=== PATIENT | male | born 1955 | race Caucasian/White ===

== ENCOUNTER 2022-09-28 16:14 | Emergency (ER) | payer MEDICARE, BC ==
[2022-09-28] MEDS ORDERED: Ketorolac 30 MG/ML SDV IM ONE (17:29)
[2022-09-28] MEDS ORDERED: Take Home: traMADol 50 MG, 4 Tab Pack PO ONE (17:38)
== END 2022-09-28 18:00 | disposition home or self-care (01) ==
LOC: VM.ED 16:14
DX: S20.212A Contusion of left front wall of thorax, initial encounter (principal); I10 Essential (primary) hypertension; W01.10XA Fall on same level from slipping, tripping and stumbling with subsequent striking against unspecified object, initial encounter
CPT/HCPCS: 70450; 71101; 82947; 96372; 99284; A9270; J1885